=== PATIENT | male | born 1970 | race Two or more races ===

== ENCOUNTER 2021-04-05 10:25 | Emergency (ER) | payer OTHER ==
[2021-04-05 10:59] VITALS: TEMP 97.6; BMI 28.3
[2021-04-05] MEDS ORDERED: DIPHTH,PERTUSS(ACELL),TET 0.5 ML DISP.SYRIN IM ONE ×2 (12:14→12:23)
[2021-04-05] MEDS ORDERED: KETOROLAC TROMETHAMINE 60 MG/2 ML VIAL IM ONE (12:14)
[2021-04-05] MEDS ORDERED: KETOROLAC TROMETHAMINE 30 MG/1 ML VIAL ONE (12:23)
[2021-04-05] MEDS ORDERED: morphine CARPU-JECT 4 MG/1 ML DISP.SYRIN IVPUSH ONE (13:51)
[2021-04-05] MEDS ORDERED: morphine SULFATE 4 MG/ML VIAL ONE (14:02)
[2021-04-05] MEDS ORDERED: CEFAZOLIN 1 GM in DEXTROSE 5%-WATER - 50 ML IVPB ONE (15:07)
[2021-04-05] MEDS ORDERED: CEFTRIAXONE 1 GM/50 ML BAG ONE (15:24)
[2021-04-05] MEDS ORDERED: ceFAZolin SODIUM 1 GM VIAL ONE (15:31)
[2021-04-05 18:47] VITALS: BP 138/72; PULSE 84
== END 2021-04-05 17:50 | disposition home or self-care (01) ==
LOC: JERFT 10:25
PROC: 3E03329 Introduction of Other Anti-infective into Peripheral Vein, Percutaneous Approach (ICD-10-PCS; principal; 2021-04-05)
PROC: 3E033GC Introduction of Other Therapeutic Substance into Peripheral Vein, Percutaneous Approach (ICD-10-PCS; 2021-04-05)
PROC: 3E0233Z Introduction of Anti-inflammatory into Muscle, Percutaneous Approach (ICD-10-PCS; 2021-04-05)
PROC: 3E0234Z Introduction of Serum, Toxoid and Vaccine into Muscle, Percutaneous Approach (ICD-10-PCS; 2021-04-05)
DX: S52.531B Colles' fracture of right radius, initial encounter for open fracture type I or II (principal); W19.XXXA Unspecified fall, initial encounter; Y92.9 Unspecified place or not applicable
CPT/HCPCS: 73110-TC-RT-FY; 73130-TC-RT-FY; 90715; 99284-25